=== PATIENT | male | born 1995 | race Caucasian/White ===

== ENCOUNTER 2019-03-27 19:36 | Emergency (ER) | payer OTHER ==
[2019-03-27] MEDS: Lidocaine 2% with EPINEPHrine 1:100,000 20 ML MDV INJECT ONE (19:58)
[2019-03-27 20:00] VITALS: BP 112/67; PULSE 83
[2019-03-27] MEDS: Bacitracin Oint 1 GM U/D Packet TOP ONE (20:13)
[2019-03-27] MEDS: Diphtheria,Pertussis(Acell),Tetanus Vaccine 0.5 ML SDV inactive IM ONE (20:21)
--- NOTE | 2019-03-28 06:21 | EDM.PDOC ---
ED HPI GENERAL MEDICAL PROBLEM - General Chief Complaint: Laceration Stated Complaint: LACERATION Time Seen by Provider: 03/27/19 19:55 Source of Information: Reports: Patient History Limitations: Reports: No Limitations - History of Present Illness INITIAL COMMENTS - FREE TEXT/NARRATIVE: Pt was playing basket ball in the evening and he got hit by another player and sustained laceration over the right upper eyelid. Since then the wound has been bleeding. Patient did wash the wound and apply pressure and come into emergency room. No blurry vision or eye ball pain or redness. No loss of consciousness.Presently not in any pain or discomfort. No other injuries. Pt claims his last tetanus was in 2007. Onset: Today Onset Date: 03/28/19 Onset Time: 19:30 Location: Reports: Face Quality: Reports: Ache Severity: Mild Improves with: Reports: None Worsens with: Reports: None Associated Symptoms: Denies: Confusion, Chest Pain, Cough, Diaphoresis, Fever/ Chills, Headaches, Nausea/Vomiting, Rash, Seizure, Shortness of Breath, Syncope , Weakness Right Upper Eyelid Pain Score (Numeric/FACES): 2 - Related Data Allergies Allergy/AdvReac Type Severity Reaction Status Date / Time No Known Allergies Allergy Verified 03/27/19 19:56 Home Meds: Home Meds NK [No Known Home Meds] 03/27/19 [History] Past Medical History Musculoskeletal History: Reports: Fracture - Past Surgical History Musculoskeletal Surgical History: Reports: Other (See Below) Other Musculoskeletal Surgeries/Procedures:: surgery to forearm fx ED ROS GENERAL - Review of Systems Review Of Systems: See Below Constitutional: Denies: Fever, Chills HEENT: Denies: Eye Pain, Rhinitis, Throat Pain, Vision Change Respiratory: Denies: Cough, Sputum Cardiovascular: Denies: Chest Pain, Lightheadedness GI/Abdominal: Denies: Abdominal Pain, Nausea, Vomiting Skin: Reports: Wound. Denies: Pruritis, Rash, Erythema ED EXAM, SKIN/RASH Exam: See Below Exam Limited By: No Limitations General Appearance: Alert, WD/WN, No Apparent Distress Eye Exam: Bilateral Eye: EOMI, PERRL Ears: Normal External Exam, Normal Canal, Hearing Grossly Normal, Normal TMs Nose: Normal Inspection, Normal Mucosa, No Blood Throat/Mouth: Normal Inspection, Normal Lips, Normal Teeth, Normal Gums, Normal Oropharynx, Normal Voice, No Airway Compromise Head: Atraumatic, Normocephalic Neck: Normal Inspection, Supple, Non-Tender, Full Range of Motion Respiratory/Chest: No Respiratory Distress, Lungs Clear, Normal Breath Sounds, No Accessory Muscle Use, Chest Non-Tender Cardiovascular: Normal Peripheral Pulses, Regular Rate, Rhythm, No Edema, No Gallop, No JVD, No Murmur, No Rub Extremities: Normal Inspection, Normal Range of Motion, Non-Tender, No Pedal Edema, Normal Capillary Refill Skin: Warm, Other (Right upper eyelid: there is a 2.4 cm clear cut laceration ove the right upper eyelid.No tear in the orbicularia occuli muscle noted. There is very minimal oozing noted. There is bruising of the upper eyelid. ) ED SKIN PROCEDURES - Laceration/Wound Repair Right Other Appearance: Linear Distal NVT: Neuro & Vascular Intact Anesthetic Type: Local Local Anesthesia - Lidocaine (Xylocaine): 1% with EPI Local Anesthetic Volume: Other (0.5 cc) Skin Prep: Providone-Iodine (Betadine) Closed with: Sutures Lac/Wound length In cm: 2.4 Suture Size: 6-0 # of Sutures: 1 (continous running) Suture Type: Running, Other (ethilon) Sterile Dressing Applied: Provider Tetanus Status Addressed: Yes Complications: No Course - Vital Signs Text/Narrative:: Pt has a linear 2.4 cm long laceration over the upper eyelid. The wound was closed using 6-O ethilon with a running continuos suture under aseptic precautions. Pt tolerated the procedure well. Simple antibiotic ointment dressing done. Pt advised not to wet the wound for 48 hrs. Intermittent cold to the area for next 24 hrs. Daily simple dressing and keep the wound clean. Infection precaution discussed. Suture removal in 7 days in the clinic. Last Recorded V/S: Last Vital Signs Temp 98.3 F 03/27/19 19:53 Pulse 83 03/27/19 19:53 Resp 16 03/27/19 19:53 BP 112/67 03/27/19 19:53 Pulse Ox 98 03/27/19 19:53 - Orders/Labs/Meds Orders: Active Orders 24 hr Category Date Time Status Vaccines to be Administered [RC] PER UNIT ROUTINE Care 03/27/19 20:17 Active Meds: Medications Discontinued Medications Generic Name Dose Route Start Last Admin Trade Name Freq PRN Reason Stop Dose Admin Bacitracin 1 dose 03/27/19 20:08 03/27/19 20:13 Bacitracin Oint 1 Gm TOP 03/27/19 20:09 1 dose ONETIME ONE Administration Diphtheria/Tetanus/Acell Pertussis 0.5 ml 03/27/19 20:17 03/27/19 20:21 Boostrix IM 03/27/19 20:18 0.5 ml .ONCE ONE Administration Lidocaine/Epinephrine 20 ml 03/27/19 19:58 03/27/19 19:58 Xylocaine 2% With Epinephrine 1:100,000 INJECT 03/27/19 19:59 20 ml ONETIME ONE Administration Departure - Departure Time of Disposition: 20:45 Disposition: Home, Self-Care 01 Condition: Fair Clinical Impression: Laceration, eyelid, right - Discharge Information *PRESCRIPTION DRUG MONITORING PROGRAM REVIEWED*: Not Applicable *COPY OF PRESCRIPTION DRUG MONITORING REPORT IN PATIENT LUZ MARINA: Not Applicable Instructions: Laceration Care, Adult, [id number], Stitches, [place], or Adhesive Wound Closure, [id number] Referrals: PCP,None [Primary Care Provider] - Forms: ED Department Discharge Additional Instructions: Apply ice to wound when you get home for 15 min to help with swelling and bruising x2 before going to bed. Apply intermittent ice for 15 min 4 times a day for next 24 hours. Have sutures removed next MondayApr 02 at the clinic. Call [phone] tomorrow morning to schedule an appt. Tell them you were in ER and need sutures removed. Keep dry for 48 hours, then you may get it wet. Apply antibiotic ointment to wound 2-3 times a day if you are going to be sweating. Let water run over wound. Do not rub or scrub. Pat dry. Monitor for signs of infection-redness, swelling, purulent drainage, or fever. - Problem List & Annotations (1) Laceration, eyelid, right SNOMED Code(s): 33729669007742979 Code(s): S01.111A - LACERATION W/O FB OF RIGHT EYELID AND PERIOCULAR AREA, INIT Status: Acute - Problem List Review Problem List Initiated/Reviewed/Updated: Yes - My Orders Last 24 Hours: My Active Orders 03/27/19 20:17 Vaccines to be Administered [RC] PER UNIT ROUTINE - Assessment/Plan Last 24 Hours: My Active Orders 03/27/19 20:17 Vaccines to be Administered [RC] PER UNIT ROUTINE Assessment:: 2.4 cm right upper eyelid laceration Plan: Pt has a linear 2.4 cm long laceration over the upper eyelid. The wound was closed using 6-O ethilon with a running continuos suture under aseptic precautions. Pt tolerated the procedure well. Simple antibiotic ointment dressing done. Pt advised not to wet the wound for 48 hrs. Intermittent cold to the area for next 24 hrs. Daily simple dressing and keep the wound clean. Infection precaution discussed. Suture removal in 7 days in the clinic.
== END 2019-03-27 20:31 | disposition home or self-care (01) ==
LOC: LB.ED 19:36
DX: S01.111A Laceration without foreign body of right eyelid and periocular area, initial encounter (principal); Z23 Encounter for immunization; W51.XXXA Accidental striking against or bumped into by another person, initial encounter; Y93.67 Activity, basketball
CPT/HCPCS: 12011; 90471; 90715; 99283-25